=== PATIENT | male | born 1985 | race Caucasian/White ===

== ENCOUNTER 2018-02-11 19:18 | Emergency (ER) | payer OTHER, SELFPAY ==
[2018-02-11] MEDS ORDERED: Ondansetron ODT 4 MG TAB ONE (19:37)
== END 2018-02-11 20:19 | disposition home or self-care (01) ==
LOC: ERS 19:18
DX: K42.9 Umbilical hernia without obstruction or gangrene (principal)
CPT/HCPCS: 99284; Q0162

== ENCOUNTER 2020-01-06 20:12 | Emergency (ER) | payer OTHER, SELFPAY ==
--- NOTE | 2020-01-06 20:34 | RAD ---
Exam: XR Elbow Lt 4 View STANDARD HISTORY: Injury to left elbow. Patient felt a pop. Pain with movement. COMPARISON: None FINDINGS: No acute fracture, dislocation, or other acute osseous abnormality is identified. IMPRESSION: No acute osseous abnormality is identified. If the patient continues to have pain, follow-up imaging is advised.
== END 2020-01-06 21:04 | disposition home or self-care (01) ==
LOC: ERS 20:12
DX: M25.522 Pain in left elbow (principal); X50.0XXA Overexertion from strenuous movement or load, initial encounter; Y99.0 Civilian activity done for income or pay